=== PATIENT | male | born 1990 | race Caucasian/White ===

== ENCOUNTER → 2017-09-19 20:10 | Outpatient (REF) | payer SELFPAY | LOC: LAB 20:10 | PROVIDERS: Visit Provider Nurse Practitioner Family ==

== ENCOUNTER → 2021-12-02 12:45 | Outpatient (CLI) | payer OTHER, SELFPAY ==
--- NOTE | 2021-12-02 12:57 | CT_ITS ---
FINAL REPORT TECHNIQUE: Multiple axial CT sections were performed from the foramen magnum to the vertex. Coronal reformatted images were also obtained. Precontrast and postcontrast injection images were obtained. This study was performed with technique to keep radiation doses as low as reasonably achievable, (ALARA). Individualized dose reduction techniques using automated exposure control or adjustment of mA and/or kV according to the patient size were employed. CLINICAL HISTORY: severe headaches pt stated when he gets his headaches the side of his head starts to swell as well as the top and he also has an indent no recent trauma or injury 100 ml isovue 300 given FINDINGS: The ventricles are normal in size. There is no evidence of hemorrhage. No masses are identified. No extra-axial fluid collection is seen. The sinuses are normal. No osseous abnormality is seen on the bone window images. Postcontrast images demonstrate no abnormal enhancement. IMPRESSION: Unremarkable CT of the head with and without contrast. Reviewed, Interpreted and Dictated by Naren Mcclure III, MD Transcribed by Marylou Mazariegos Authenticated by Naren Mcclure III, MD on 12/02/2021 02:26:21 PM [facility]
== END ==
PROVIDERS: PCP Family Medicine; Visit Provider Family Medicine
DX: G44.219 Episodic tension-type headache, not intractable (principal); S09.90XA Unspecified injury of head, initial encounter
CPT/HCPCS: 70470; Q9967

== ENCOUNTER 2022-01-26 11:57 | Emergency (ER) | payer OTHER, SELFPAY ==
[2022-01-26 13:06] VITALS: BP 121/80; PULSE 62; RESP 16; TEMP 36.7; O2SAT 98; BMI 28.5
--- NOTE | 2022-01-26 13:14 | HMH.EDUTC ---
[facility] [place] Disposition Clinical Impression: Gastroenteritis Disposition: Home, Self-Care Condition on Discharge: Good Instructions: Viral Gastroenteritis, DI for Viral Gastroenteritis -- Adult, Ondansetron, Promethazine Additional Instructions: Drink plenty of fluids. Take tylenol or ibuprofen for pain or fever. Take the medications as directed. Follow up with your regular doctor. GO TO THE ER FOR ANY WORSENING SYMPTOMS The promethazine will make you drowsy, so don't drive or operate heavy machinery after taking it. Prescriptions: Promethazine HCl [Phenergan 25mg tab] 25 mg PO Q6H PRN #20 tab PRN Reason: Nausea And Vomiting Transmission Status: Received by [id number] Referrals: Provider,Referral, MD [Primary Care Provider] - Forms: Work/School Release Time of Disposition: 13:25 Medical Decision Making - Medical Records Medical records reviewed: No: I reviewed the patient's medical records. - Mikel Inquiry Pt receiving controlled substance: No Vital Signs: 01/26/22 13:06 01/26/22 13:28 Temperature 98.1 F 98.1 F Temperature Source Oral Pulse Rate 62 Pulse Rate [Left] 62 Respiratory Rate 16 16 Blood Pressure 121/80 Blood Pressure [Right Arm] 121/80 Blood Pressure Mean [Right Arm] 93 02 Sat by Pulse Oximetry 98 - Lab Data Lab results reviewed: Yes: I reviewed the patient's lab results. Orders (Tests/Meds): ED MEDICATIONS Discontinued Medications Generic Name Dose Route Start Last Admin Trade Name Freq PRN Reason Stop Dose Admin Ondansetron HCl 4 mg 01/26/22 13:23 01/26/22 13:34 Ondansetron 4mg Odt SL 01/26/22 13:24 4 mg ONCE ONE Administration [facility] [place] HPI - General Stated complaint: nausea, vomiting Time Seen by Provider: 01/26/22 13:14 Description of Symptoms (Recalled from Triage Doc. by RN): patiet comes in with complaints of nausea, vomitting and general fatigue. symptoms began last night into early this morning. HEENT Symptoms (Recalled from RN notes): No Resp Symptoms (Recalled from RN notes): No Skin Symptoms (Recalled from RN notes): No MS Symptoms (Recalled from RN notes): No Functional Status (Recalled from RN notes): n/a - History of Present Illness Provider Complaint: He has had n/v/d since early this morning. He denies abdominal pain other than cramping associated with his diarrhea. - Related Data Previous Rx's Medication Instructions Recorded frbzluwidy-wwnatsqucorxd-ntgjzotx 1 cap PO Q6H PRN #60 cap 11/24/21 50 mg-300 mg-40 mg capsule methylprednisolone 4 mg tablets in See Rx Instructions PO PER PKG DIR 11/24/21 a dose pack #21 tab Promethazine HCl [Phenergan 25mg 25 mg PO Q6H PRN #20 tab 01/26/22 tab] Allergies Allergy/AdvReac Type Severity Reaction Status Date / Time No Known Allergies Allergy Verified 01/26/22 13:11 - Worker's Comp Is this a Worker's Comp case?: No [facility] History - Hepatitis A Screen Attestation statement:: This patient has been screened for Hepatitis A risk factors. I have reviewed the patient's past medical history: Yes Medical History: Reports:: Asthma Fractures: Yes - Social History Smoking Status: Current every day smoker Tobacco Type: cigarettes # Packs/Day (cigarettes): 1 Alcohol Intake: never Occupational Status: employed Housing: house Household Members: family Family Hx:: No significant family history ROS Obtained: Yes All systems reviewed & no additional complaints - Constitutional Constitutional: Reports as per HPI - Eyes Eyes: Denies eye discharge - ENT Ears, Nose, Mouth, and Throat: Reports as per HPI - Cardiovascular Cardiovascular: Denies chest pain Physical Exam - General General appearance: alert, in no apparent distress - Head Head exam: atraumatic, normocephalic, normal inspection - Eye Eye exam: Present: normal appearance, PERRL, EOMI - ENT ENT exam: Present: normal exam, normal oropharynx, mucous membra
[2022-01-26 13:28] VITALS: BP 121/80; PULSE 62; RESP 16; TEMP 36.7
== END 2022-01-26 13:34 | disposition home or self-care (01) ==
PROVIDERS: Emergency Provider Nurse Practitioner Family
DX: K52.9 Noninfective gastroenteritis and colitis, unspecified (principal); R53.82 Chronic fatigue, unspecified; J45.909 Unspecified asthma, uncomplicated; Z79.52 Long term (current) use of systemic steroids
CPT/HCPCS: 99213; G0463

== ENCOUNTER → 2022-05-10 10:05 | Outpatient (CLI) | payer BC, OTHER, SELFPAY ==
[2022-05-10 14:31] LABS: Alanine Aminotransferase 21 U/L (12-78); Albumin Level 4.5 g/dl (3.5-5.0); Albumin/Globulin Ratio 1.7 (1.1-1.8); Alkaline Phosphatase 112 U/L (38-126); Anion Gap 16.4 mEq/L (5-15); Aspartate Amino Transferase 29 U/L (17-59); Bilirubin,Total 0.5 mg/dl (0.2-1.3); Blood Urea Nitrogen 16 mg/dl (9-20); Calcium 9.4 mg/dl (8.4-10.2); Carbon Dioxide 30 mmol/L (22.0-30.0); Chloride 100 mmol/L (98-107); Cholesterol 131 mg/dl (140-200); Estimated Glomerular Filt Rate 78 ml/min (>60); GFR (African American) 94 ML/MIN (>60); Globulin 2.6 g/dL (1.3-3.2); Glucose 92 mg/dl (74-100); HDL Cholesterol 33 mg/dl (40-60); Potassium 4.4 mmoL/L (3.5-5.1); Sodium 142 mmol/L (136-145); Total Protein,Serum 7.1 g/dl (6.3-8.2); Triglycerides 56 mg/dl (30-150); VLDL Cholesterol 11 mg/dL (0-40)
[2022-05-10 14:48] LABS: 25-OH Vitamin D, Total 29.4 ng/mL (30-100)
[2022-05-10 14:59] LABS: Basophils % 0.6 % (0.1-2.0); Eosinophils # 0.1 K/mm3 (0.0-0.4); Eosinophils % 1.4 % (0.1-12.0); Hematocrit 47.2 % (42.0-52.0); Lymphocytes # 1.4 K/mm3 (0.7-4.5); Mean Corpuscular HGB Conc 31.9 g/dL (31.8-35.4); Mean Corpuscular Hemoglobin 30.2 pg (27.0-31.2); Mean Corpuscular Volume 94.8 fl (80-94); Mean Platelet Volume 9.3 fl (7.4-10.4); Monocytes # 0.6 K/mm3 (0.1-1.0); Monocytes % 11.2 % (1.7-9.3); Neutrophils # 3.3 K/mm3 (1.8-7.8); Neutrophils % 60.9 % (37.0-80.0); Platelet Count 212 K/mm3 (142-424); Red Blood Count 4.97 M/mm3 (4.60-6.20); Red Cell Distribution Width 12.2 % (11.5-17.5); White Blood Count 5.5 K/mm3 (4.8-10.8)
[2022-05-10 15:14] LABS: Iron 94 ug/dL (49-181)
[2022-05-10 15:22] LABS: Total Iron Binding Capacity 338 ug/dL (261-462)
[2022-05-10 15:23] LABS: Direct LDL Cholesterol 83.85 mg/dL (100-129)
== END ==
PROVIDERS: PCP Student in an Organized Health Care Education/Training Program; Visit Provider Student in an Organized Health Care Education/Training Program
DX: R53.83 Other fatigue (principal); K52.89 Other specified noninfective gastroenteritis and colitis; E55.9 Vitamin D deficiency, unspecified
CPT/HCPCS: 80053; 80061; 82306; 83540; 83550; 84443; 85025

== ENCOUNTER 2023-02-16 16:27 | Emergency (ER) | payer BC, SELFPAY ==
[2023-02-16 16:39] VITALS: BP 157/93; PULSE 62; RESP 16; TEMP 36.8; O2SAT 98; BMI 29.8
--- NOTE | 2023-02-16 16:45 | EXP.UTC ---
Discharge Plan Disposition Patient Disposition: Home, Self-Care Condition: Good Prescriptions Prescriptions: New cyclobenzaprine 10 mg Tablet 10 mg PO BID PRN (Reason: Muscle Spasm) Qty: 20 0RF triamcinolone acetonide 0.1 % cream 1 applic topical BID PRN (Reason: itching) Qty: 30 0RF methylprednisolone 4 mg Tablets,Dose Pack 4 mg PO DIRECTED Qty: 21 0RF Referrals Follow up/Referrals: Provider,Referral, MD [Primary Care Provider] - See instructions Activity Restrictions/Add. Instructions Additional Instructions/Restrictions: Go home and rest. It would be best if you rested tomorrow too. No heavy lifting. No twisting. Take the oral medications as directed. The muscle relaxer (cyclobenzaprine--Flexeril) will make you drowsy, so don't drive or operate heavy machinery after taking it. Don't start the oral steroids (medrol dose pack) until tomorrow, since you had the shots in here today. Follow up with your regular doctor. GO TO THE ER FOR ANY WORSENING SYMPTOMS OR CONCERN, ESPECIALLY BOWEL OR BLADDER ISSUES, SADDLE AREA NUMBNESS, FEVER, ETC Clinical Impressions Clinical Impression: Back pain, Contact dermatitis Stand Alone Forms Stand Alone Forms: Work/School Release Instructions Patient Instructions: Poison Odalis, Poison [place], Poison [place], DI for Low Back Pain, Methylprednisolone Injection, Ketorolac Injection Discharge ED Provider: Jordan Washington [facility] General Stated complaint: AO 02/14 back injury, poss poison oak Mode of Arrival: Ambulatory Source of Information: Patient Limitations: No Limitations Time Seen by Provider: 02/16/23 16:45 Description of Symptoms (Recalled from Triage Doc. by RN): Pulled a muscle in the left lower back 2 days ago. Also has posion odalis on bilateral legs. HEENT Symptoms (Recalled from RN notes): No Resp Symptoms (Recalled from RN notes): No Skin Symptoms (Recalled from RN notes): Yes MS Symptoms (Recalled from RN notes): Yes Functional Status (Recalled from RN notes): no History of Present Illness Provider Complaint: He states that for the past 2 days he has had low back pain. He denies any fall or injury. He denies any urinary complaints. He also has an itchy rash on his right leg from poison odalis. Related Data Previous Rx's Medication Instructions Recorded cyclobenzaprine 10 mg tablet 10 mg PO BID PRN Muscle Spasm #20 02/16/23 tabs methylprednisolone 4 mg tablets in 4 mg PO DIRECTED #21 tabs 02/16/23 a dose pack triamcinolone acetonide 0.1 % 1 applic topical BID PRN itching 02/16/23 topical cream #30 grams Allergies Allergy/AdvReac Type Severity Reaction Status Date / Time No Known Allergies Allergy Verified 02/16/23 16:42 Worker's Comp Is this a Worker's Comp case?: No [facility] Disclaimer: The information contained in this section may have been updated after the patient was seen, as this information can be updated by other users. Medical History Asthma Migraine Surgical History No significant past surgical history Family History Other No significant family history Social History Smoking Status: Current every day smoker tobacco type: cigarettes packs per day: 1 alcohol intake: never current occupational status: employed Travel in the last 8 weeks: [place] the [place] household members: family housing: house ROS Obtained: Yes All systems reviewed & no additional complaints except as documented Constitutional Constitutional: Denies chills and Denies fever(s) Eyes Eyes: Denies eye discharge ENT Ears, Nose, Mouth, and Throat: Denies dizziness, Denies otalgia and Denies sore throat Cardiovascular Cardiovascular: Denies chest pain Respiratory Respiratory: Denies shortness of breath, Denies
[2023-02-16 17:10] VITALS: BP 157/93; PULSE 62; RESP 16; TEMP 36.8
== END 2023-02-16 17:13 | disposition home or self-care (01) ==
PROVIDERS: Emergency Provider Nurse Practitioner Family
DX: M54.59 Other low back pain (principal); L23.7 Allergic contact dermatitis due to plants, except food; F17.210 Nicotine dependence, cigarettes, uncomplicated; X50.0XXA Overexertion from strenuous movement or load, initial encounter; W60.XXXA Contact with nonvenomous plant thorns and spines and sharp leaves, initial encounter
CPT/HCPCS: 96372; 99212; 99214; G0463

== ENCOUNTER 2023-04-04 09:33 | Emergency (ER) | payer BC, SELFPAY ==
[2023-04-04 09:34] VITALS: BP 136/96; PULSE 85; RESP 19; TEMP 36.9; O2SAT 98; BMI 29.0
[2023-04-04 09:59] VITALS: BMI 29.0
[2023-04-04 10:01] VITALS: PULSE 102; O2SAT 96
--- NOTE | 2023-04-04 10:04 | XR_ITS ---
FINAL REPORT TECHNIQUE: Chest PA & Lateral CLINICAL HISTORY: Nonspecific cough COMPARISON: None FINDINGS: 2 views of the chest were performed. The heart size is normal. The mediastinum is within normal limits. There is no acute cardiopulmonary process. There are no pleural effusions. There is no pneumothorax. The bony thorax appears intact. IMPRESSION: No acute cardiopulmonary process. Reviewed, Interpreted and Dictated by Caden Cortés MD Transcribed by Lizbeth Sexton Authenticated and [facility]
[2023-04-04 10:10] LABS: Influenza A, PCR Not Detected (NotDetected); Influenza B, PCR Not Detected (NotDetected)
[2023-04-04 10:14] LABS: Basophils # 0.1 K/mm3 (0-0.2); Basophils % 1.3 % (0.1-2.0); Eosinophils % 0.1 % (0.1-12.0); Hematocrit 47.5 % (42.0-52.0); Hemoglobin 15.8 g/dL (14.1-18.0); Lymphocytes # 1.1 K/mm3 (0.7-4.5); Lymphocytes % 28.2 % (10-50); Mean Corpuscular HGB Conc 33.3 g/dL (31.8-35.4); Mean Corpuscular Hemoglobin 29.8 pg (27.0-31.2); Mean Corpuscular Volume 89.3 fl (80-94); Mean Platelet Volume 9.1 fl (7.4-10.4); Monocytes # 0.7 K/mm3 (0.1-1.0); Monocytes % 16.9 % (1.7-9.3); Neutrophils # 2.1 K/mm3 (1.8-7.8); Neutrophils % 53.5 % (37.0-80.0); Platelet Count 168 K/mm3 (142-424); Red Blood Count 5.32 M/mm3 (4.60-6.20); Red Cell Distribution Width 12.7 % (11.5-17.5); White Blood Count 3.9 K/mm3 (4.8-10.8)
[2023-04-04 10:18] LABS: Chloride 103 mmol/L (98-107); Potassium 4.1 mmoL/L (3.5-5.1); Sodium 139 mmol/L (136-145)
[2023-04-04 10:20] LABS: Alanine Aminotransferase 55 U/L (12-78); Aspartate Amino Transferase 49 U/L (17-59); Blood Urea Nitrogen 20 mg/dl (9-20); Creatinine Clearance Estimated 125 mL/min (50-200); Estimated Glomerular Filt Rate 70 ml/min (>60); GFR (African American) 85 ML/MIN (>60)
[2023-04-04 10:21] LABS: Albumin Level 4.3 g/dl (3.5-5.0); Albumin/Globulin Ratio 1.3 (1.1-1.8); Alkaline Phosphatase 96 U/L (38-126); Bilirubin,Total 0.9 mg/dl (0.2-1.3); Calcium 8.7 mg/dl (8.4-10.2); Globulin 3.2 g/dL (1.3-3.2); Glucose 154 mg/dl (74-100); Total Protein,Serum 7.5 g/dl (6.3-8.2)
--- NOTE | 2023-04-04 10:29 | HMH.EDGENADL ---
Discharge Plan Disposition Patient Disposition: Home, Self-Care Prescriptions Prescriptions: New ondansetron 4 mg tablet,disintegrating 4 mg PO Q8H PRN (Reason: nausea and vomiting) 4 Days Qty: 12 0RF No Action cyclobenzaprine 10 mg Tablet 10 mg PO BID PRN (Reason: Muscle Spasm) Qty: 20 0RF triamcinolone acetonide 0.1 % cream 1 applic topical BID PRN (Reason: itching) Qty: 30 0RF methylprednisolone 4 mg Tablets,Dose Pack 4 mg PO DIRECTED Qty: 21 0RF Referrals Follow up/Referrals: Provider,Referral, MD [Primary Care Provider] - See instructions Activity Restrictions/Add. Instructions Additional Instructions/Restrictions: At this time it was felt you are safe to be discharged home. If new or worsening symptoms please do not hesitate to return the emergency department. If symptoms persist please follow-up with your family doctor as you are able. Please visit the CDC's website for isolation precautions. Please take your medication as prescribed. Clinical Impressions Clinical Impression: COVID-19 Discharge ED Provider: Robb Ku General Adult HPI General Chief complaint: Nausea/Vomiting/Diarrhea Stated complaint: diaphram pain, fever, chills Time Seen by Provider: 04/04/23 10:10 Mode of Arrival: Family Vehicle Source of Information: Patient Limitations: No Limitations Description of Symptoms (Recalled from ER Triage Doc. by RN): Pt c/o epigastric pain with nausea and vomiting since Tuesday. He also reports blood tinged emesis. States he has had body aches and chills since Tuesday. He has been taking Dayquil, Ibuprofen, and Tylenol most recently @ approx 0800. He reports he feels a knot at the epigastric area that is very tender. History of Present Illness HPI narrative: Patient is a 33-year-old male with no pertinent past medical history presents emergency department for multiple complaints. Patient has had cough, myalgias, vomiting with intermittent tinges of blood, epigastric and low sternal pain. The tinges of blood happened after multiple episodes of vomiting. This been going on for the last few days. Adequate urine output. No other acute complaints at this time. Related Data Previous Rx's Medication Instructions Recorded cyclobenzaprine 10 mg tablet 10 mg PO BID PRN Muscle Spasm #20 02/16/23 tabs methylprednisolone 4 mg tablets in 4 mg PO DIRECTED #21 tabs 02/16/23 a dose pack triamcinolone acetonide 0.1 % 1 applic topical BID PRN itching 02/16/23 topical cream #30 grams ondansetron 4 mg disintegrating 4 mg PO Q8H PRN nausea and 04/04/23 tablet vomiting 4 days #12 tabs Allergies Allergy/AdvReac Type Severity Reaction Status Date / Time No Known Allergies Allergy Verified 02/16/23 16:42 [facility] Disclaimer: The information contained in this section may have been updated after the patient was seen, as this information can be updated by other users. Medical History Asthma Migraine Surgical History No significant past surgical history Family History Other No significant family history Social History Smoking Status: Former smoker alcohol intake: never current occupational status: employed Travel in the last 8 weeks: [place] the [place] household members: family housing: house ROS Obtained: Yes Systems reviewed as appropriate & no additional complaints except as documented Physical Exam General General appearance: alert and in no apparent distress Head Head exam: atraumatic and normocephalic Eye Eye exam: Present PERRL and EOMI ENT ENT exam: Present mucous membranes moist Neck Neck exam: Present normal inspection Chest Chest inspection: Present normal inspection and symmetric chest wall rise Respiratory Respiratory
--- NOTE | 2023-04-04 10:51 | PC.NURSE ---
lab states approx 16 minutes until results of covid swab
[2023-04-04 10:57] VITALS: BP 117/80; PULSE 60; O2SAT 94
[2023-04-04 11:00] VITALS: BP 122/79; PULSE 68; O2SAT 96
[2023-04-04 11:01] LABS: Lipase 72 U/L (23-300)
[2023-04-04 11:14] LABS: Coronavirus 19, PCR Detected (NotDetected); Troponin I < 0.01 ng/ml (0.00-0.034)
--- NOTE | 2023-04-04 11:18 | PC.NURSE ---
checked on pt he was asleep at this time,call light at bs
--- NOTE | 2023-04-04 11:37 | ECG_ITS ---
APPROVED REPORT Exam: Resting ECG HR:58 bpm ECG Measurements Heart Rate 58 AXES CA 172 P 58 QRSd 113 QRS 91 QT 391 T 43 QTc 387 Conclusion SINUS BRADYCARDIA BORDERLINE RIGHT AXIS DEVIATION [QRS AXIS > 90] MODERATE INTRAVENTRICULAR CONDUCTION DELAY [110+ ms QRS DURATION] BORDERLINE ECG UNCONFIRMED REPORT Electronically signed by : Vern Aguilar MD 04/04/2023 20:15:40
[2023-04-04 11:46] VITALS: BP 122/75; PULSE 68; O2SAT 97
[2023-04-04 11:48] VITALS: BP 122/75; PULSE 69; RESP 16; TEMP 36.9; O2SAT 96
[2023-04-04 12:46] LABS: Anion Gap 16.1 mEq/L (5-15); Carbon Dioxide 24 mmol/L (22.0-30.0)
== END 2023-04-04 11:49 | disposition home or self-care (01) ==
PROVIDERS: Emergency Provider Emergency Medicine
DX: U07.1 COVID-19 (principal); R10.13 Epigastric pain; R11.2 Nausea with vomiting, unspecified; J45.909 Unspecified asthma, uncomplicated; G43.909 Migraine, unspecified, not intractable, without status migrainosus; Z87.891 Personal history of nicotine dependence
CPT/HCPCS: 71046; 80053; 83690; 84484; 85025; 87636; 93005; 96361; 96374; 99285; J2405

== ENCOUNTER 2023-06-27 18:24 | Emergency (ER) | payer BC, SELFPAY ==
--- NOTE | 2023-06-27 18:39 | EXP.UTC ---
Discharge Plan Disposition Patient Disposition: Home, Self-Care Condition: Good Prescriptions Prescriptions: New methylprednisolone 4 mg Tablets,Dose Pack 4 mg PO DIRECTED Qty: 21 0RF terbinafine HCl [Antifungal (terbinafine)] 1 % cream 1 applic topical BID 14 Days Qty: 15 2RF Referrals Follow up/Referrals: Provider,Referral, [Primary Care Provider] - See instructions Activity Restrictions/Add. Instructions Additional Instructions/Restrictions: Take the oral medications as directed. Apply the topical medication as directed. Follow up with your regular doctor. GO TO THE ER FOR ANY WORSENING SYMPTOMS Clinical Impressions Clinical Impression: Tinea pedis, Psoriasis Instructions Patient Instructions: DI for Athlete's Foot, Methylprednisolone, Terbinafine Discharge ED Provider: Jordan Washington [facility] General Stated complaint: exema flare up on feet Time Seen by Provider: 06/27/23 18:39 History of Present Illness Provider Complaint: He states that he is having a flare up of his psoriasis on his feet and athlete's foot symptoms. Related Data Previous Rx's Medication Instructions Recorded methylprednisolone 4 mg tablets in 4 mg PO DIRECTED #21 tabs 06/27/23 a dose pack terbinafine HCl 1 % topical cream 1 applic topical BID 14 days #15 06/27/23 (Antifungal (terbinafine)) grams Allergies Allergy/AdvReac Type Severity Reaction Status Date / Time No Known Allergies Allergy Verified 06/27/23 19:11 [facility] Disclaimer: The information contained in this section may have been updated after the patient was seen, as this information can be updated by other users. Medical History Asthma Migraine Surgical History No significant past surgical history Family History Other No significant family history Social History Smoking Status: Former smoker tobacco type: cigarettes packs per day: 1 alcohol intake: never current occupational status: employed Travel in the last 8 weeks: [place] the [place] household members: family housing: house ROS Obtained: Yes All systems reviewed & no additional complaints except as documented Constitutional Constitutional: Denies chills and Denies fever(s) Eyes Eyes: Denies eye discharge ENT Ears, Nose, Mouth, and Throat: Denies dizziness, Denies otalgia and Denies sore throat Cardiovascular Cardiovascular: Denies chest pain Respiratory Respiratory: Denies shortness of breath, Denies chest congestion, Denies cough, Denies stridor and Denies wheezing Gastrointestinal Gastrointestingal: Denies nausea or vomiting Musculoskeletal Musculoskeletal: Reports system reviewed and no additional complaints, except as documented and Denies arthralgias Integumentary/Breasts Skin/Breast: Reports as per HPI and Reports rash Neurologic Neurologic: Denies dizziness and Denies paresthesias Allergic/Immunologic Allergic/Immunologic: Denies wheezing Physical Exam General General appearance: alert and in no apparent distress Head Head exam: atraumatic, normocephalic and normal inspection Eye Eye exam: Present normal appearance, PERRL and EOMI ENT ENT exam: Present normal exam, normal oropharynx, mucous membranes moist, TM's normal bilaterally and normal external ear exam Neck Neck exam: Present normal inspection, full ROM and trachea midline; Absent meningismus or lymphadenopathy Chest Chest inspection: Present normal inspection and symmetric chest wall rise; Absent tenderness Respiratory Respiratory exam: Present normal lung sounds bilaterally; Absent respiratory distress Cardiovascular Cardiovascular exam: Present regular rate and normal rhythm; Absent JVD Abdominal Exam Abdominal exam: Present soft and normal bowel sounds; Absent
[2023-06-27 18:50] VITALS: BP 164/96; PULSE 63; RESP 18; TEMP 36.6; O2SAT 100; BMI 29.2
[2023-06-27 19:43] VITALS: BP 166/96; PULSE 63; RESP 18; TEMP 36.6; O2SAT 100
== END 2023-06-27 19:43 | disposition home or self-care (01) ==
PROVIDERS: Emergency Provider Nurse Practitioner Family
DX: L40.9 Psoriasis, unspecified (principal); B35.3 Tinea pedis; J45.909 Unspecified asthma, uncomplicated; Z87.891 Personal history of nicotine dependence
CPT/HCPCS: 99212; 99214; G0463

== ENCOUNTER 2023-07-13 16:41 | Emergency (ER) | payer BC, SELFPAY ==
[2023-07-13 18:06] VITALS: BP 130/75; PULSE 74; RESP 18; TEMP 36.8; O2SAT 98; BMI 29.0
--- NOTE | 2023-07-13 18:14 | ED_ITS ---
Discharge Plan Disposition Patient Disposition: Home, Self-Care Condition: Good Prescriptions Prescriptions: New ciclopirox 0.77 % cream 1 applic topical BID 28 Days Qty: 90 0RF Rx Instructions: apply to feet as directed methylprednisolone [Medrol (Vinnie)] 4 mg tablets,dose pack See Rx Instructions .Route .COMPLEX 6 Days Qty: 21 0RF Rx Instructions: taper pack; No Action methylprednisolone 4 mg Tablets,Dose Pack 4 mg PO DIRECTED Qty: 21 0RF terbinafine HCl [Antifungal (terbinafine)] 1 % cream 1 applic topical BID 14 Days Qty: 15 2RF Referrals Follow up/Referrals: Hao Encarnacion DO [Primary Care Provider] - See instructions Eliza Miller DPM [Staff Physician] - See instructions Activity Restrictions/Add. Instructions Additional Instructions/Restrictions: Use topical medication as prescribed Follow up with your Family Doctor and/or Podiatry if no improvement or any woresning of symptoms Clinical Impressions Clinical Impression: Tinea pedis Qualifiers: Laterality: bilateral Qualified Code(s): B35.3 - Tinea pedis Instructions Patient Instructions: Athlete's Foot, Athlete's Foot (Alternative Therapy), DI for Athlete's Foot Discharge ED Provider: Alice Fonseca [facility] General Stated complaint: bilateral foot pain, no accident Mode of Arrival: Ambulatory Source of Information: Patient Limitations: No Limitations Time Seen by Provider: 07/13/23 18:15 Description of Symptoms (Recalled from Triage Doc. by RN): Patient reports athletes foot on bilateral feet for 1 week. HEENT Symptoms (Recalled from RN notes): No Resp Symptoms (Recalled from RN notes): No Skin Symptoms (Recalled from RN notes): Yes MS Symptoms (Recalled from RN notes): No Functional Status (Recalled from RN notes): wnl History of Present Illness Provider Complaint: Patient states that he was seen and treated for athletes feet about a month ago and he has been using the cream and it hasnt got any better States that he thinks he needs something else to help Related Data Previous Rx's Medication Instructions Recorded methylprednisolone 4 mg tablets in 4 mg PO DIRECTED #21 tabs 06/27/23 a dose pack terbinafine HCl 1 % topical cream 1 applic topical BID 14 days #15 06/27/23 (Antifungal (terbinafine)) grams ciclopirox 0.77 % topical cream 1 applic topical BID 4 weeks #90 07/13/23 grams methylprednisolone 4 mg tablets in See Rx Instructions .Route 07/13/23 a dose pack (Medrol (Vinnie)) .COMPLEX 6 days #21 tabs Allergies Allergy/AdvReac Type Severity Reaction Status Date / Time No Known Allergies Allergy Verified 06/27/23 19:11 Worker's Comp Is this a Worker's Comp case?: No [facility] Disclaimer: The information contained in this section may have been updated after the patient was seen, as this information can be updated by other users. Medical History Asthma Migraine Surgical History No significant past surgical history Family History Other No significant family history Social History Smoking Status: Former smoker tobacco type: cigarettes packs per day: 1 alcohol intake: never current occupational status: employed Travel in the last 8 weeks: [place] the [place] household members: family housing: house ROS Obtained: Yes All systems reviewed & no additional complaints except as documented and Yes Systems reviewed as appropriate & no additional complaints except as documented Constitutional Constitutional: Reports system reviewed and no additional complaints, except as documented and Reports as per HPI Eyes Eyes: Reports system reviewed and no additional complaints, except as documented and Reports as per HPI ENT Ears, Nose, Mouth, and Throat: Reports system reviewed and no additional complaints, except as documented and Reports as per HPI Cardiovascular Cardiovascular: Reports system reviewed and no additional complaints, except as documented and Reports as per HPI Integumentary/Breasts Skin/Breast: Reports system reviewed and no additional complaints, except as documented and Reports as per HPI Comments: itchy scaly rash worse between toes that itches stings and carcamo at times Physical Exam General General appearance: alert and in no apparent distress ENT ENT exam: Present mucous membranes moist Respiratory Respiratory exam: Present normal lung sounds bilaterally; Absent respiratory distress or wheezes Cardiovascular Cardiovascular exam: Present regular rate, normal rhythm and normal heart sounds Abdominal Exam Abdominal exam: Present soft and normal bowel sounds; Absent distention or tenderness Extremities Exam Extremities exam: Present other (dry scaly like rash with raw moist skin between toes appears like tinea pedis) Neurological Exam Neurological exam: Present alert, oriented X3 and normal gait Medical Decision Making Mikel Inquiry Pt receiving controlled substance: No Mikel was queried for this patient: No Vital Signs: 07/13/23 18:06 Temperature 98.2 F Temperature Source Oral Pulse Rate [Radial] 74 Respiratory Rate 18 Blood Pressure [Right Arm] 130/75 Blood Pressure Mean [Right Arm] 93 Blood Pressure Source [Right Arm] Automatic Cuff Blood Pressure Position [Right Arm] Sitting 02 Sat by Pulse Oximetry 98 Oxygen Delivery Method Room Air Medical Decision Narrative: Medications was discussed with pharmacy
[2023-07-13 18:51] VITALS: BP 130/75; PULSE 74; RESP 18; TEMP 36.8; O2SAT 98
== END 2023-07-13 18:52 | disposition home or self-care (01) ==
PROVIDERS: Emergency Provider Nurse Practitioner; PCP Internal Medicine
DX: B35.3 Tinea pedis (principal); J45.909 Unspecified asthma, uncomplicated; Z87.891 Personal history of nicotine dependence
CPT/HCPCS: 99212; 99214; G0463